=== PATIENT | female | born 1955 | race American Indian/Alaskan Native ===

== ENCOUNTER 2021-06-26 07:54 | Day surgery (SDC) | payer MEDICAID ==
[2021-06-26 08:55] LABS: Basophils # (Auto) 0.1 K/mm3 (0.0-0.1); Eosinophils # (Auto) 0.3 K/mm3 (0.0-0.4); Eosinophils % (Auto) 3.5 % (0.0-4.3); Hematocrit 36.5 % (30.3-42.9); Hemoglobin 11.7 gm/dl (10.1-14.3); Lymphocytes # (Auto) 1.9 K/mm3 (1.2-5.4); Lymphocytes % (Auto) 25.8 % (13.4-35.0); Mean Corpuscular HGB Conc 32 % (30-34); Mean Corpuscular Volume 95 fl (79-97); Monocytes # (Auto) 1.1 K/mm3 (0.0-0.8); Monocytes % (Auto) 14.5 % (0.0-7.3); Platelet Count 240 K/mm3 (140-440); Red Blood Count 3.86 M/mm3 (3.65-5.03); Red Cell Distribution Width 15.6 % (13.2-15.2)
[2021-06-26 08:56] LABS: Basophils % (Auto) 0.8 % (0.0-1.8)
[2021-06-26 09:00] LABS: Calcium 10.3 mg/dL (8.4-10.2)
[2021-06-26] MEDS ORDERED: SODIUM CHLORIDE 0.9% 500 ML 500 ML IV SCH (09:00)
[2021-06-26 09:02] LABS: INR 1.03 (0.87-1.13)
[2021-06-26] MEDS ORDERED: ASPIRIN 81 MG TAB CHEW PO SCH (10:00)
--- NOTE | 2021-06-26 10:07 | Electrocardiograph Report ---
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
[2021-06-26] MEDS ORDERED: HEPARIN/NS 5000 UNIT/500ML 1,000 ML IR ONE (12:00)
[2021-06-26] MEDS ORDERED: HEPARIN 10,000 UNITS/10 ML VIAL ONE (12:01)
[2021-06-26] MEDS: fentaNYL 100 MCG/2 ML INJ ONE ×2 (12:19→12:47)
[2021-06-26] MEDS: MIDAZOLAM 2 MG/2 ML INJ ONE ×2 (12:19→12:47)
[2021-06-26] MEDS: LIDOCAINE (2%) 20 MG/1 ML VIAL 20 ML MDV INFILTRATI ONE ×2 (12:19→12:48)
[2021-06-26] MEDS ORDERED: traMADol 50 MG TAB PO PRN (13:31)
--- NOTE | 2021-06-26 13:34 | Discharge Summary ---
Short Stay Discharge Plan Activity: advance as tolerated Weight Bearing Status: Partial Weight Bearing Diet: low fat, low cholesterol, low salt Wound: keep clean and dry Special Instructions: no heavy lifting (3 days) Follow up with: MIRIAN ASKEW [Other] - 7 Days GABRIELLE DOWNING MD [Staff Physician] - 7 Days
[2021-06-26] MEDS ORDERED: SODIUM CHLORIDE 0.9% 1000 ML 1,000 ML IV SCH (13:45)
--- NOTE | 2021-06-26 15:18 | Cardiac Catherization Report ---
DATE OF SERVICE: 06/26/2021 CARDIAC CATHETERIZATION REPORT REASON FOR PROCEDURE: Abnormal thallium stress test, preoperative assessment for colostomy reversal. PROCEDURES: 1. Left heart catheterization. 2. Selective left and right coronary angiography. 3. Left ventricular angiography. 4. Sedation time start 12:19, end 12:56. DESCRIPTION OF PROCEDURE: The patient was prepped and draped in a sterile fashion after informed consent. The right femoral artery was entered using Seldinger technique followed by placement of a 6-Andor[place] sheath. Selective left and right coronary angiography was performed using #4 left and #4 right Shannon catheters. The pigtail catheter was used for left ventricular angiography. Catheters were then removed, sheath removed and hemostasis achieved using manual compression. The patient was returned to the postprocedure unit in stable condition. There were no complications. FINDINGS: HEMODYNAMICS: Left ventricular end-diastolic pressure was 23, following coronary angiography. Ascending aortic pressure was 119/62, there was no significant pressure gradient on pullback across the aortic valve. CORONARY ANGIOGRAPHY: Left main coronary artery was angiographically normal. The left anterior descending artery and its diagonal branches were angiographically normal. A medium size ramus intermedius artery was angiographically normal. The circumflex artery and its obtuse marginal branches were angiographically normal. The right coronary artery contained mild luminal irregularities in its proximal segment, but otherwise angiographically normal. There was normal left ventricular systolic function with left ventricular ejection fraction estimated at 55%. CONCLUSION: 1. Mild luminal irregularities of the proximal right coronary artery, otherwise essentially angiographically normal coronary arteries. 2. Normal left ventricular systolic function, ejection fraction 55%. RECOMMENDATIONS: Risk factor modification and medical therapy. TID: [id number] RECEIPT: [id number] CA/BRADY/TAJ
[2021-06-26 17:35] VITALS: BP 105/48
== END 2021-06-26 17:20 | disposition home or self-care (01) ==
LOC: CATHLABREC 07:54
PROVIDERS: ATTEND Internal Medicine Cardiovascular Disease
DX: R94.30 Abnormal result of cardiovascular function study, unspecified (principal); I12.0 Hypertensive chronic kidney disease with stage 5 chronic kidney disease or end stage renal disease; N18.6 End stage renal disease; E78.00 Pure hypercholesterolemia, unspecified; Z99.2 Dependence on renal dialysis; Z87.891 Personal history of nicotine dependence; Z79.82 Long term (current) use of aspirin; Z79.899 Other long term (current) drug therapy; Z98.890 Other specified postprocedural states
CPT/HCPCS: 36415; 80048; 85025; 85610; 93005; 93458; 99156; 99157; J1644; J2250; J3010; J3490; J7040; Q9967